=== PATIENT | female | born 1960 | race Asian ===

== ENCOUNTER 2017-01-02 05:23 | Inpatient (IN) | payer OTHER ==
[~2017-01-02] VITALS: Ht 152.4 cm; Wt 79.3 kg
--- NOTE | ~2017-01-02 | HEMODYNAMI ---
PATIENT:KARRI LOFTON MEDICAL RECORD: [id number] : 60 LOCATION:[facility].[address] [facility]# [id number] ADMISSION DATE: 01/02/17 Generatedon:01/02/201713:26 Patient name: KARRI LOFTON Patient #: [id number] SSN: DO B: 1960 Date of study: 01/02/2017 Page: Of Hemodynamic Procedure Report Patient Data Patient Demographics Procedure consent was obtained First Name: KARRI Gender: Female Last Name: KIRSTY : 1960 [facility] Initial: YOAV Age: 56 year(s) Patient #: [id number] Race: Additional ID: [id number] Contact details [address]: [address] [place] [address] State: [place] City: [place] Zip code: [address] Past Medical History Allergies: No known allergies Admission Admission Data Admission Date: 01/02/2017 Admission Time: 7:37 Room #: D.2123 Insurance Payor: Private health insurance Height (in.): 60 BSA: 1.71 (m2) Height (cm.): 152.4 BMI: 31.9 (kg/m2) Weight (lbs.): 163.34 Weight (kg.): 74.09 Lab Results Lab Result Date: 01/02/2017 Lab Result Time: 10:05 Biochemistry Name Units Result Min Max BUN mg/dl 17 --(---*)-- 7 18 Creatinine mg/dl 1.1 --(--*-)-- 0.6 1.3 CBC Name Units Result Min Max Hematocrit % 34.3 *-(----)-- 42 54 Hemoglobin g/dl 11.4 *-(----)-- 13.5 17.5 Procedure Procedure Types Cath Procedure Diagnostic Procedure [facility] w/Coronaries PCI Procedure Coronary Stent Initial Miscellaneous Procedures Moderate Sedation up to 15 minutes Procedure Description Procedure Date Procedure Date: 01/02/2017 Procedure Start Time: 13:10 Procedure End Time: 13:25 Procedure Staff Name Function Adam Malik MD Performing Physician Juan C Ozuna RN Nurse Armin Salcedo RT Monitor Ricci Chapa RT Conventional Underwriter Pranay Garg RT Scrub Procedure Data Cath Procedure Fluoroscopy Diagnostic fluoroscopy Total fluoroscopy Time: 4 time: 4 min min Diagnostic fluoroscopy Total fluoroscopy dose: 374 dose: 374 mGy mGy Contrast Material Contrast Material Type Amount (ml) Isovue 300 77 Entry Location Entry Primary Successful Side Size Upsize Upsize Entry Closure Hernandez ccessful Closure Location (Fr) 1 (Fr) 2 (Fr) Remarks Device Remarks Radial Right 6 Fr Mechanical artery Short Compression Estimated blood loss: 10 ml Diagnostic catheters Device Type Used For End Catheter Placement Terumo 5Fr Nils 110cm Procedure catheter Procedure Complications No complications Procedure Medications Medication Administration Route Dosage Oxygen NC 2 l/min Lidocaine 2% added to field 20 Heparin Flush Bag added to field 2 bags (1000units/500ml NS) 0.9% NaCl I.V. 100 ml/hr Versed I.V. 1 mg Fentanyl I.V. 50 mcg Versed I.V. 1 mg Fentanyl I.V. 50 mcg Fentanyl I.V. 100 mcg Heparin Bolus I.V. 4000 units Integrilin (Bolus I.V. 6.8 ml 2mg/ml) Plavix P.O. 600 mg Hemodynamics Rest BSA: 1.71 (m2) HGB: 11.4 (g/dl) O2 Consumption: Estimated: 158.19 (ml/min) O2 Co nsumption indexed: Estimated:92.51 (ml/min/m) Heart Rate: 61 (bpm) Snapshots Pre Cath Intra NCS Post Cath Vital Signs Time Heart Resp SPO2 etCO2 [id number] NIBP (mmHg) Rhythm Pain Sedation Rate (ipm) (%) (mmHg) (mmHg) Status Level (bpm) 12:51:30 66 15 100 0 0 151/80(121) NSR 0 (11) 10(A) , No pain 12:55:52 62 16 100 0 0 171/82(118) NSR 0 (11) 10(A) , No pain 13:00:06 61 15 100 0 0 126/76(104) NSR 0 (11) 10(A) , No pain 13:04:20 61 14 100 0 0 117/70(97) NSR 0 (11) 10(A) , No pain 13:08:30 61 17 99 0 0 118/78(93) NSR 0 (11) 10(A) , No pain 13:12:44 81 15 100 0 0 94/49(78) NSR 0 (11) 9(A) , No pain 13:16:52 64 15 98 0 0 99/53(82) NSR 0 (11) 9(A) , No pain 13:20:59 61 16 100 0 0 111/60(75) NSR 0 (11) 10(A) , No pain 13:25:13 57 13 100 0 0 101/54(78) NSR 0 (11) 10(A) , No pain Medications Time Medication Route Dose Verified Delivered Reason Notes Effectiveness by by 12:56:11 Oxygen NC 2 Adam Buffie used for l/min King Ozuna RN procedure 12:57:20 Lidocaine 2% added 20ml Adam Adam for local to vial King Malik MD anesthetic field 12:57:26 Heparin Flush added 2 Adam Adam used for Bag to bags King Malik MD procedure (1000units/500ml field NS) 12:57:49 0.9% NaCl I.V. 100 Adam Buffie Per physician ml/hr King Ozuna RN 13:08:08 Versed I.V. 1 mg Adam Irizarry for sedation King Ozuna RN 13:08:17 Fentanyl I.V. 50 Adam Buffie for sedation mcg King Ozuna RN 13:11:39 Versed I.V. 1 mg Adam Perezie for sedation King Ozuna RN 13:11:44 Fentanyl I.V. 50 Adam Perezie for sedation mcg King Ozuna RN 13:14:45 Fentanyl I.V. 100 Adam Perezie for sedation mcg King Ozuna RN 13:16:08 Heparin Bolus I.V. 4000 Adam Irizarry for verifi ed units King Ozuna RN anticoagulation with dr malik 13:18:16 Integrilin I.V. 6.8 Adam Irizarry for Wasted (Bolus 2mg/ml) ml King Ozuna RN anticoagulation 3.2 ml of vial. 13:23:35 Plavix P.O. 600 Adam Irizarry for mg King Ozuna RN antiplatelet therapy Procedure Log Time Note 12:32:54 Ricci Chapa RT(R) sent for patient. Start room use. 12:32:59 Time tracking: Regular hours 12:33:05 Plan of Care:Hemodynamics will remain stable., Cardiac rhythm will remain stable., Comfort level will be maintained., Respiratory function will remain adequate., Patient/ family verbilizes understanding of procedure., Procedure tolerated without complication., Recovers from procedure without complications.. 12:44:35 Patient received from Med II to CCL 1 Alert and oriented. Tansferred to table in Supine position. 12:44:36 Warm blankets applied, and philomena hugger turned on for patient comfort. 12:44:37 Correct patient and procedure confirmed by team. 12:44:38 Signed procedure consent form obtained from patient. 12:44:39 ECG and BP/O2 sat monitors applied to patient. 12:50:10 Vital chart was started 12:50:11 Full Disclosure recording started 12:56:11 Oxygen 2 l/min NC was given by Juan C Ozuna RN; used for procedure; 12:57:20 Lidocaine 2% 20ml vial added to field was given by Adam Malik MD; for local anesthetic; 12:57:26 Heparin Flush Bag (1000units/500ml NS) 2 bags added to field was given by Adam Malik MD; used for procedure; 12:57:49 0.9% NaCl 100 ml/hr I.V. was given by Juan C Ozuna RN; Per physician; 12:58:38 Baseline sample Acquired. 12:58:46 Rhythm: sinus rhythm 12:59:19 Family unavailable. 12:59:21 Patient NPO since Midnight. 12:59:27 Patient allergic to No known allergies 12:59:29 Is the patient allergic to Iodine/contrast media? No. 12:59:30 Is patient on blood thinner?No 12:59:31 Patient diabetic? No. 12:59:34 Previous problem with sedation/anesthesia? No ? 12:59:35 Snore? Yes 12:59:36 Sleep apnea? No 12:59:42 Deviated septum? No 12:59:42 Opens mouth fully? Yes 12:59:43 Sticks out tongue? Yes 12:59:45 Airway obstruction? No ? 12:59:46 Dentures? No ? 12:59:49 Modified Travis's test Ulnar < 7 seconds 12:59:51 Patient pain scale 0/10 ?. 12:59:57 IV patent on arrival in right antecubital with 0.9% NaCl at [facility]. 13:01:09 Lab Result : BUN 17 mg/dl 13:: Lab Result : Creatinine 1.1 mg/dl 13:01: Lab Result : Hemoglobin 11.4 g/dl 13:01: Lab Result : Hematocrit 34.3 % 13::17 Lab results completed and on chart. 13:01:21 Right Radial & Right Groin area was prepped with chlora-prep and draped in sterile fashion 13:01:22 Alarms reviewed by R. N. 13:01:23 Sharps counted by scrub and verified by R.N. 13:01:38 Use device set Radial Dx 13:01:39 Tegaderm 4 x 4 opened to sterile field. 13:01:41 Acist Manifold opened to sterile field. 13:01:41 Acist Hand Control opened to sterile field. 13:01:43 Acist Syringe opened to sterile field. 13:01:43 Medline Cath Pack opened to sterile field. 13:01:44 Bag Decanter opened to sterile field. 13:01:44 Terumo 6Fr Slender Glidesheath opened to sterile field. 13:01:45 St Nish 260cm J .035 wire opened to sterile field. 13:02:21 H&P Date Dictated: 01/02/2017 Within 30 days and on chart.. 13:02:22 Pre-procedure instructions explained to patient. 13:02:23 Pre-op teaching completed and patient verbalized understanding. 13:02:58 Patient Weight : 163.34 lbs 13:03:15 Patient Height : 60 inches 13:03:25 Insurance Payor : Private health insurance 13:07:09 Physician arrived 13:07:09 --------ALL STOP TIME OUT------ 13:07:10 Final Timeout: patient, procedure, and site verified with staff and physician. All members of the team are in agreement. 13:07:11 Right Radial & Right Groin site verified by team. 13:07:14 Physical assessment completed. ASA score P 2 - A patient with mild systemic disease as per Adam Malik MD. 13:07:17 Sedation plan: IV Moderate Sedation Versed, Fentanyl 13:07:20 Zero performed for pressure channel P1 13:08:08 Versed 1 mg I.V. was given by Juan C Ozuna RN; for sedation; 13:08:17 Fentanyl 50 mcg I.V. was given by Juan C Ozuna RN; for sedation; 13:09:49 Procedure started. 13:10:20 Local anesthetic to right radial artery with Lidocaine 2% by Adam Malik MD.INITIAL ACCESS ONLY 13:10:37 A 6 Fr Short sheath was inserted into the Right Radial artery 13:11:25 A Terumo 5Fr Nils 110cm catheter was advanced over the wire and used for Procedure. 13:11:39 Versed 1 mg I.V. was given by uJan C Ozuna RN; for sedation; 13:11:44 Fentanyl 50 mcg I.V. was given by Juan C Ozuna RN; for sedation; 13:12:41 LV gram done using AMEZCUA 13:12:46 Injector settings: Ml/sec: 5, Volume: 15, 13:13:22 EF : 60 % 13:13:29 LCA angiography performed. 13:14:23 RCA angiography performed. 13:14:45 Fentanyl 100 mcg I.V. was given by Juan C Ozuna RN; for sedation; 13:14:49 Catheter removed. 13:15:18 Mariano Whisper J 300cm 0.014 guide wire opened to sterile field. 13:15:19 [employer] BasixCompak Inflation Kit opened to sterile field. 13:16:08 Heparin Bolus 4000 units I.V. was given by Juan C Ozuna RN; for anticoagulation; verified with dr malik 13:16:35 Cordis 6FR XBLAD 3.5 guide catheter opened to sterile field. 13:16:49 6 Fr XBLAD 3.5 guide catheter was inserted over the wire 13:16:55 WHISPER wire advanced. 13:17:57 Wire advanced across lesion. 13:18:16 Integrilin (Bolus 2mg/ml) 6.8 ml I.V. was given by Juan C Ozuna RN; for anticoagulation; Wasted 3.2 ml of vial. 13:19:13 Inflation Number: 1 A Medtronic Integrity 3.5 X 18 stent was prepped and advanced across the Mid LAD. The stent was deployed at 13 JASWINDER for 0:10 (min:sec). 13:20:16 Terumo TR Band Standard opened to sterile field. 13:20:26 ACC PCI Site: mLAD has 85% stenosis. 13:20:28 ACC Pre-intervention MICHELLE Flow is 3. 13:20:30 ACC Post-intervention MICHELLE Flow is 3. 13:20:32 Stent catheter was removed intact over wire. 13:20:34 Wire removed. 13:20:34 Guide catheter removed. 13:20:58 Sheath removed intact; hemostasis achieved with Mechanical Compression to the Right Radial artery. 13:21:02 Procedure ended.(Physican Out) 13:21:52 Fluoroscopy time 04.00 minutes. 13::56 Fluoroscopy dose: 374 mGy 13:21:56 Flurop Dose total: 374 13:22:02 Contrast amount:Isovue 300 77ml. 13:22:03 Sharps counted by scrub and verified by R.N. 13:22:06 TR band inflated with 10cc of air. 13:22:08 Insertion/operative site no bleeding no hematoma. 13:22:19 Post right radial artery:stable, soft, clean and dry 13:22:21 Post Procedure Pulses reassessed and unchanged 13:22:23 Post-procedure physical assessment completed. ASA score P 2 - A patient with mild systemic disease as per Adam Malik MD. 13:22:31 Post procedure rhythm: unchanged. 13:22:35 Estimated blood loss: 10 ml 13:22:37 Post procedure instruction explained to patient.Patient verbalizes understanding. 13:22:37 Patient needs reinforcement of post procedure teaching. 13:23:35 Plavix 600 mg P.O. was given by Juan C Ozuna RN; for antiplatelet therapy; 13:24:17 Procedure type changed to Cath procedure, Diagnostic procedure, LHC, LHC w/Coronaries, PCI procedure, Coronary Stent Initial, Miscellaneous Procedures, Moderate Sedation up to 15 minutes 13:25:09 Procedure and supply charges have been captured, reviewed, submitted and are correct. 13:25:11 Procedure Complication : No complications 13:25:14 Vital chart was stopped 13:25:15 See physician's report for complete and final results. 13:25:17 Report given to PCU. 13:25:19 Patient transfered to PCU with Stretcher. 13:25:22 Procedure ended. 13:25:22 Full Disclosure recording stopped 13:25:58 ACC-PCI Only Patient was given prescriptions, or instructed by Adam Malik MD to start/continue the following medications upon discharge: Plavix 13:26:05 End room use (Document Last) Intervention Summary Intervention Notes Time ActionType Lesion and Equipment Action# Pressure Duration Attributes Used 13:19:13 Place stent Mid LAD Medtronic 1 13 00:10 Integrity 3.5 X 18 stent Device Usage Item Name Manufacture Quantity Catalog Hospital Part Current Minimal Lot# / Number Charge Number Stock Stock Serial# Code Tegaderm 4 1 [id number] [id number] [id number] 5 x 4 Acist Acist 1 92980 [id number] 892222 [id number] 5 Manifold [employer] Acist Hand Acist 1 76205 612061 305848 174068 5 Control [employer] Inc Acist Acist 1 91864 815940 124232 416895 20 Syringe [employer] Inc Medline Cardinal 1 [id number] 829516 98136 545992 5 Cath Pack Health Bag Microtek 1 2002S 750670 92626 175603 5 [employer] Terumo 6Fr Terumo 1 [id number] 568251 530750 266320 [address] Nish St Nish 1 424091 840313 627445 971654 30 260cm J .035 wire Terumo 5Fr Terumo 1 01-7506 624188 264936 142132 5 Nils 110cm catheter Mariano Mariano 1 [id number] 917243 883765 664167 5 Whisper J Vascular 300cm 0.014 guide wire Merit Merit 1 [id number] 153293 384928 909962 15 [facility] [facility] Medical Inflation Kit Cordis 6FR Cardinal 1 [id number] 988242 859105 315414 10 XBLAD 3.5 Health guide catheter Medtronic Medtronic 1 [id number] 934648 220126 6 [id number] Integrity 3.5 X 18 stent Terumo TR Terumo 1 [id number] 696859 897766 274919 40 Band Standard Signature Audit [place] Stage Time Signature Unsigned Intra-Procedure 01/02/2017 Armin Salcedo 1:26:53 PM RT(R) Signatures Monitor : Armin Salcedo RT Signature : Date : Time : [address] [place] [address]
--- NOTE | ~2017-01-02 | HEMODYNAMI ---
PATIENT:KARRI LOFTON MEDICAL RECORD: [id number] : 60 LOCATION:[facility] [address] [facility]# [id number] ADMISSION DATE: 01/02/17 Generatedon:01/03/201712:38 Patient name: KARRI LOFTON Patient #: [id number] SSN: DO B: 1960 Date of study: 01/03/2017 Page: Of Hemodynamic Procedure Report Patient Data Patient Demographics Procedure consent was obtained First Name: KARRI Gender: Female Last Name: KIRSTY : 1960 [facility] Initial: YOAV Age: 56 year(s) Patient #: [id number] Race: Additional ID: [id number] Contact details Address: [address] [place] [address] State: [place] City: [place] Zip code: [address] Past Medical History Allergies: No known allergies Admission Admission Data Admission Date: 01/02/2017 Admission Time: 14:56 Room #: D.2123 Insurance Payor: Private health insurance Height (in.): 60 BSA: 1.71 (m2) Height (cm.): 152.4 BMI: 31.9 (kg/m2) Weight (lbs.): 163.34 Weight (kg.): 74.09 Lab Results Lab Result Date: 01/03/2017 Lab Result Time: 0:00 Biochemistry Name Units Result Min Max BUN mg/dl 17 --(---*)-- 7 18 Creatinine mg/dl 1.1 --(--*-)-- 0.6 1.3 CBC Name Units Result Min Max Hemoglobin g/dl 11.4 *-(----)-- 13.5 17.5 Procedure Procedure Types Cath Procedure Diagnostic Procedure FFR/IVUS Intra-Coronary IVUS Initial PCI Procedure Coronary Stent Initial Miscellaneous Procedures Moderate Sedation up to 15 minutes Procedure Description Procedure Date Procedure Date: 01/03/2017 Procedure Start Time: 12:28 Procedure End Time: 12:37 Procedure Staff Name Function Adam Malik MD Performing Physician Viv Crum RT Scrub Juan C Ozuna RN Nurse Pranay Garg RT Monitor Procedure Data Cath Procedure Fluoroscopy Diagnostic fluoroscopy Total fluoroscopy Time: 1.8 time: 1.8 min min Diagnostic fluoroscopy Total fluoroscopy dose: 255 dose: 255 mGy mGy Contrast Material Contrast Material Type Amount (ml) Isovue 300 39 Entry Location Entry Primary Successful Side Size Upsize Upsize Entry Closure Succes sful Closure Location (Fr) 1 (Fr) 2 (Fr) Remarks Device Remarks Femoral Right 6 Fr Vascade artery Short Closure System Procedure Medications Medication Administration Route Dosage Oxygen NC 2 l/min Lidocaine 2% added to field 20 Heparin Flush Bag added to field 2 bags (1000units/500ml NS) 0.9% NaCl I.V. 100 ml/hr Versed I.V. 1 mg Fentanyl I.V. 50 mcg Heparin Bolus I.V. 4000 units Versed I.V. 1 mg Fentanyl I.V. 50 mcg Versed I.V. 1 mg Fentanyl I.V. 50 mcg Hemodynamics Rest BSA: 1.71 (m2) HGB: 11.4 (g/dl) O2 Consumption: Estimated: 160.64 (ml/min) O2 Co nsumption indexed: Estimated:93.94 (ml/min/m) Heart Rate: 65 (bpm) Snapshots Pre Cath Intra NCS Post Cath Vital Signs Time Heart Resp SPO2 etCO2 TB4atve NIBP (mmHg) Rhythm Pain Sedation Rate (ipm) (%) (mmHg) (mmHg) Status Level (bpm) 12:13:11 67 17 100 0 0 159/87(144) NSR 0 (11) 10(A) , No pain 12:17:27 62 18 100 0 0 135/75(105) NSR 0 (11) 10(A) , No pain 12:21:43 62 17 99 0 0 128/75(99) NSR 0 (11) 10(A) , No pain 12:25:59 62 16 99 0 0 129/71(112) NSR 0 (11) 10(A) , No pain 12:30:13 62 15 100 0 0 131/77(102) NSR 0 (11) 9(A) , No pain 12:34:27 64 15 100 0 0 127/71(102) NSR 0 (11) 9(A) , No pain 12:38:00 65 15 100 0 0 125/78(102) NSR 0 (11) 10(A) , No pain Medications Time Medication Route Dose Verified Delivered Reason Notes Effectiveness by by 12:12:33 Oxygen NC 2 Adam Anaie used for l/min King Ozuna RN procedure 12:12:39 Lidocaine 2% added 20ml Adam Adam for local to vial King Malik MD anesthetic field 12:12:46 Heparin Flush added 2 Adam Adam used for Bag to bags King Malik MD procedure (1000units/500ml field NS) 12:12:54 0.9% NaCl I.V. 100 Adam Buffie Per physician ml/hr King Ozuna RN 12:28:02 Fentanyl I.V. 50 Adam Perezie for sedation mcg King Ozuna RN 12:28:02 Versed I.V. 1 mg Daam Buffie for sedation King Ozuna RN 12:29:47 Heparin Bolus I.V. 4000 Adam Perezie for verifi ed units King Ozuna RN anticoagulation with dr malik 12:31:20 Versed I.V. 1 mg Adam Buffie for sedation King Ozuna RN 12:31:24 Fentanyl I.V. 50 Adam Perezie for sedation mcg King Ozuna RN 12:33:28 Versed I.V. 1 mg Adam Buffie for sedation King Ozuna RN 12:33:32 Fentanyl I.V. 50 Adam Buffie for sedation mcg King Ozuna RN Procedure Log Time Note 11:53:40 Juan C Ozuna RN sent for patient. Start room use. 11:53:41 Time tracking: Regular hours 11:53:43 Patient Weight : 163.34 lbs 11:53:43 Patient Height : 60 inches 11:53:45 Plan of Care:Hemodynamics will remain stable., Cardiac rhythm will remain stable., Comfort level will be maintained., Respiratory function will remain adequate., Patient/ family verbilizes understanding of procedure., Procedure tolerated without complication., Recovers from procedure without complications.. 12:00:31 Patient received from PCU to CCL 1 Alert and oriented. Tansferred to table in Supine position. 12:00:32 Warm blankets applied, and philomena hugger turned on for patient comfort. 12:00:33 Correct patient and procedure confirmed by team. 12:00:34 Signed procedure consent form obtained from patient. 12:00:35 ECG and BP/O2 sat monitors applied to patient. 12:00:36 Full Disclosure recording started 12:03:46 IV right antecubital D/C'd due to infiltration. 12:04:47 IV started by Juan C Ozuna RN inleft hand with a 22 gauge IV catheter with 0.9% NaCl at KVO. 12:05:45 22g IV Catheter opened to sterile field. 12:11:55 Vital chart was started 12:12:33 Oxygen 2 l/min NC was given by Juan C Ozuna RN; used for procedure; 12:12:39 Lidocaine 2% 20ml vial added to field was given by Adam Malik MD; for local anesthetic; 12:12:46 Heparin Flush Bag (1000units/500ml NS) 2 bags added to field was given by Adam Malik MD; used for procedure; 12:12:54 0.9% NaCl 100 ml/hr I.V. was given by Juan C Ozuna RN; Per physician; 12:14:06 Baseline sample Acquired. 12:14:09 Rhythm: sinus rhythm 12:15:18 H&P Date Dictated: 01/02/2017 Within 30 days and on chart.. 12:15:20 Pre-procedure instructions explained to patient. 12:15:20 Pre-op teaching completed and patient verbalized understanding. 12:15:22 Family in patients room. 12:15:24 Patient NPO since Midnight. 12:15:30 Patient allergic to No known allergies 12:15:33 Is the patient allergic to Iodine/contrast media? No. 12:15:37 Is patient on blood thinner?Yes 12:15:40 ACC The patient was administered the following blood thiners within the last 24 hours: ACCPlavix 12:15:42 Patient diabetic? No. 12:15:43 ----Pre-sedation anethsthesia assessment.---- 12:15:46 Previous problem with sedation/anesthesia? No ? 12:15:47 Snore? Yes 12:15:48 Sleep apnea? No 12:15:50 Deviated septum? No 12:15:51 Opens mouth fully? Yes 12:15:53 Sticks out tongue? Yes 12:15:55 Airway obstruction? No ? 12:15:56 Dentures? No ? 12:15:59 Pre procedure: right dorsailis pedis pulse 2+ Normal; easily identifiable; not easily obliterated 12:16:02 Patient pain scale 0/10 ?. 12:16:53 Lab Result : BUN 17 mg/dl 12:16:53 Lab Result : Creatinine 1.1 mg/dl 12:16:53 Lab Result : Hemoglobin 11.4 g/dl 12:16:57 Lab results completed and on chart. 12:17:00 Right groin area was prepped with chlora-prep and draped in sterile fashion 12:17:01 Alarms reviewed by R. N. 12:17:02 Sharps counted by scrub and verified by R.N. 12:20:56 Physician paged 12:21:15 Use device set Femoral PCI 12:21:18 Acist Syringe opened to sterile field. 12:21:19 Acist Hand Control opened to sterile field. 12:21:19 Bag Decanter opened to sterile field. 12:21:20 Medline Cath Pack opened to sterile field. 12:21:21 Terumo 6Fr [place] Carver Sheath opened to sterile field. 12:21:21 St Nish 260cm J .035 wire opened to sterile field. 12:21:22 Merit BasixCompak Inflation Kit opened to sterile field. 12:21:23 Acist Manifold opened to sterile field. 12:21:24 Tegaderm 4 x 4 opened to sterile field. 12:24:08 Zero performed for pressure channel P1 12:24:11 Zero performed for pressure channel P1 12:27:04 --------ALL STOP TIME OUT------ 12::04 Final Timeout: patient, procedure, and site verified with staff and physician. All members of the team are in agreement. 12:27:06 Right groin site verified by team. 12:27:09 Physical assessment completed. ASA score P 2 - A patient with mild systemic disease as per Adam Malik MD. 12:27:12 Sedation plan: IV Moderate Sedation Versed, Fentanyl 12:28:02 Fentanyl 50 mcg I.V. was given by Juan C Ozuna RN; for sedation; 12::02 Versed 1 mg I.V. was given by Juan C Ozuna RN; for sedation; 12::28 Procedure started. 12:28:37 Local anesthetic to right femoral artery with Lidocaine 2% by Adam Malik MD.INITIAL ACCESS ONLY 12::45 A 6 Fr Short sheath was inserted into the Right Femoral artery 12:: 6 Fr XBLAD 4 guide catheter was inserted over the wire 12:: WHISPER wire advanced. 12::39 FFR/IVUS 12::39 IVUS catheter advanced over wire. 12:: IVUS pass to Circ lesion performed. 12::47 Heparin Bolus 4000 units I.V. was given by Juan C Ozuna RN; for anticoagulation; verified with dr malik 12:30:02 Faber Torres Martinez Eagleye IVUS Catheter opened to sterile field. 12::49 Procedure type changed to Cath procedure, Diagnostic procedure, FFR/IVUS, Intra-Coronary IVUS Initial, PCI procedure, Coronary Stent Initial, Miscellaneous Procedures, Moderate Sedation up to 15 minutes 12::54 IVUS catheter removed over wire. 12:31:20 Versed 1 mg I.V. was given by Juan C Ozuna RN; for sedation; 12:31:24 Fentanyl 50 mcg I.V. was given by Juna C Ozuna RN; for sedation; 12:32:17 Inflation Number: 1 A Citymapper Limitedtronic Integrity 3.0 X 15 stent was prepped and advanced across the Mid CX. The stent was deployed at 13 JASWINDER for 0:09 (min:sec). 12::29 Inflation number: 2 The stent balloon was then re-inflated across the Mid CX to 17 JASWINDER for 0:10 (min:sec). 12:32:38 ACC Post-intervention MICHELLE Flow is 3. 12:32:39 Stent catheter was removed intact over wire. 12:32:40 Wire removed. 12:32:41 Guide catheter removed. 12:32:48 Contrast amount:Isovue 300 39ml. 12:32:54 Sheath removed intact; hemostasis achieved with Vascade Closure System to the Right Femoral artery. 12:33:01 Vascade 6/7 Fr Closure Device opened to sterile field. 12:33:28 Versed 1 mg I.V. was given by Juan C Ozuna RN; for sedation; 12:33:32 Fentanyl 50 mcg I.V. was given by Juan C Ozuna RN; for sedation; 12:35:58 Procedure ended.(Physican Out) 12:36:19 Fluoroscopy time 01.80 minutes. 12:36:23 Flurop Dose total: 255 12:36:23 Fluoroscopy dose: 255 mGy 12:36:25 Sharps counted by scrub and verified by R.N. 12:36:27 Insertion/operative site no bleeding no hematoma. 12:36:28 Insertion/operative site no bleeding no hematoma. 12:36:31 Post-op/insertion site Right Femoral artery dressed using a 4 x 4 and Tegaderm. 12:36:35 Post right femoral artery:stable 12:36:35 Post Procedure Pulses reassessed and unchanged 12:36:38 Post procedure: right dorsailis pedis pulse 1+ Palpable, but thready & weak; easily obliterated. 12:36:40 Post procedure rhythm: sinus rhythm 12:36:42 Post procedure instruction explained to patient.Patient verbalizes understanding. 12:36:43 Procedure and supply charges have been captured, reviewed, submitted and are correct. 12:37:18 Mariano Whisper J 300cm 0.014 guide wire opened to sterile field. 12:37:18 Cordis 6FR XBLAD 4.0 guide catheter opened to sterile field. 12:37:45 Vital chart was stopped 12:37:46 See physician's report for complete and final results. 12:37:50 Report given to PCU. 12:37:53 Patient transfered to PCU with Bed. 12:37:55 Procedure ended. 12:37:55 Full Disclosure recording stopped 12:37:59 End room use (Document Last) Intervention Summary Intervention Notes Time ActionType Lesion and Equipment Action# Pressure Duration Attributes Used 12:32:17 Place stent Mid CX Medtronic 1 13 00:10 Integrity 3.0 X 15 stent 12:32:29 Reinflate Mid CX Medtronic 2 17 00:10 stent Integrity balloon 3.0 X 15 stent Device Usage Item Name Manufacture Quantity Catalog Hospital Part Current [facility] l Lot# / Number Charge Number Stock Stock Serial# Code 22g IV B. Wiggins 1 [id number] 405820 [id number] 474484 5 Catheter Acist Acist 1 04645 052224 339009 298320 20 Syringe Medical Systems Inc Acist Hand Acist 1 64318 048465 056117 191029 5 Control Medical Systems Inc Bag Microtek 1 2002S 230907 64061 818721 5 Decanter Medical Inc. Medline Cardinal 1 [id number] 58951 848497 5 Cath Pack Health Terumo 6Fr Terumo 1 [id number] 451679 729005 322112 [address] Nish 1 020383 372790 316142 843270 30 260cm J .035 wire [facility] Merit 1 [id number] 976269 594907 316662 15 BasixCompak Medical Inflation Kit Acist Acist 1 89694 465251 585997 229095 5 crossvertise Medical Systems Inc Tegaderm 4 3M 1 1626W 241115 778183 474208 5 x 4 Faber Faber 1 [id number] 206177 366459 051401 8 Torres Martinez Eagleye IVUS Catheter Medtronic Medtronic 1 [id number] 002736 578236 014993 9 [id number] Integrity 3.0 X 15 stent Vascade 6/7 Cardiva 1 [id number] 181221 131794 805815 5 Fr Closure Medical, Device Inc. Mariano Mariano 1 [id number] 409177 800273 204570 5 Whisper J Vascular 300cm 0.014 guide wire Cordis 6FR Cardinal 1 [id number] 270127 427708 185976 3 XBLAD 4.0 Novaled guide catheter Signature Audit [place] Stage Time Signature Unsigned Intra-Procedure 01/03/2017 Pranay Garg 12:38:21 PM RT(R) Signatures Monitor : Pranay Garg RT Signature : Date : Time : [facility] [address] [place], [place] [address]
[~2017-01-02 05:23] MED LIST: EDARBI40 MG PO
[2017-01-02 05:47] LABS: BASOPHILS 0.4 % (0.0-2.0); EOSINOPHILS 3.3 % (0-7); HEMATOCRIT 34.3 % (36.0-48.0); HEMOGLOBIN 11.4 g/dL (12-16); IMMATURE GRANULOCYTES 0.2 % (0-5); MCH 20.8 pg (26.0-34.0); MCHC 33.2 g/dL (31.0-37.0); MCV 62.5 fL (80.0-100.0); MONOCYTES 9.6 % (2-11); NEUTROPHILS 56.5 % (40-80); PLATELET COUNT 193 10x3/uL (130-400); RBC 5.49 10x6/uL (4.00-5.40); RDW 15.8 % (11.5-14.5); WBC 11.3 10x3/uL (4.8-10.8)
[2017-01-02 06:23] LABS: ALBUMIN 3.6 g/dL (3.4-5.0); ALKALINE PHOSPHATASE 80 U/L (46-116); ALT (SGPT) 23 U/L (10-68); CALC OSMOLALITY 280 mosm/kg (275-300); CARBON DIOXIDE 27.4 mmol/L (21.0-32.0); CHLORIDE - SERUM 102 mmol/L (98-107); CREATININE - SERUM 1.1 mg/dL (0.6-1.3); GLUCOSE 106 mg/dL (74-106); POTASSIUM - SERUM 3.6 mmol/L (3.5-5.1); PROTEIN - SERUM 8.1 g/dL (6.4-8.2); SODIUM 140 mmol/L (136-145); UREA NITROGEN 17 mg/dL (7-18); eGFR NON AFRICAN AMERICAN 54 mL/min (90-120)
[2017-01-02 06:34] LABS: CHOL - HDL RATIO 6.4 ratio (2.3-4.1); CHOLESTEROL, TOTAL 359 mg/dL (0-200); CKMB 0.7 U/L (0.0-3.6); CREATINE KINASE 54 UL (21-215); HDL CHOLESTEROL 56 mg/dL (32-96); LDL CHOLESTEROL 284 mg/dL (0-100); LDL-HDL RATIO 5.1 ratio (1.5-3.5); TRIGLYCERIDE 95 mg/dL (30-200)
[2017-01-02 06:35] LABS: TROPONIN-I < 0.017 ng/mL (0.000-0.060)
--- NOTE | 2017-01-02 08:10 | NUR ---
ARRIVE TO ROOM VIA WHEELCHAIR FROM ER ACCOMPANIED BY ER NURSE. ALERT AND ORIENTED X4. AMBULATES FROM CHAIR TO BED. GAIT STEADY. DENIES SOB OR PAIN AT THIS TIME. GUDELIA WITH CARDIOLOGY ARRIVE TO ROOM FOR CONSULT. CONTINUE ADMISSION PROCESS. BED LOCKED AND AND LOW. CALL LIGHT IN REACH. TWO SIDERAILS UP. REFUSE SCDs. AMBULATORY.
[2017-01-02] MEDS ORDERED: ACETAMINOPHEN500 M1 PO (08:23)
[2017-01-02] MEDS ORDERED: MULTIPLE VITAMI1 TA1 PO (08:24)
[2017-01-02 08:55] LABS: INR 0.93 (0.85-1.17); PROTIME 12.3 SECONDS (11.6-15.0)
[2017-01-02 10:20] VITALS: BP 141/74; Ht 152.4 cm; Wt 79.3 kg
[2017-01-02 10:46] LABS: CKMB 0.4 U/L (0.0-3.6); CREATINE KINASE 48 UL (21-215); TROPONIN-I < 0.017 ng/mL (0.000-0.060)
[2017-01-02 12:07] VITALS: BP 121/77; BP 169/83
--- NOTE | 2017-01-02 13:43 | NUR ---
ARRIVE BACK TO ROOM VIA BED FROM SAFETY ANALYST. SINUS RHYTHM 64bpm ON TELEMETRY. DENIES PAIN OR SOB. BP-119/69, 96% RA, R-16. TR BAND RT WRIST. RT HAND PURPLISH BLUE. WARM TO TOUCH. SAFETY ANALYST NOTIFIED. JOHNNY COME TO ASSESS. TR BAND DEFLATED AND REPOSITIONED. TR BAND INFLATED WITH 10mL OF AIR. COLORATION OF HAND WNL. SCANT BLOOD FROM REPOSITIONING TR BAND. CONTINUE TO MONITOR. BED LOCKED AND LOW. CALL LIGHT IN REACH. TWO SIDERAILS UP.
[2017-01-02 16:15] VITALS: BP 117/55
[2017-01-02 16:23] LABS: CKMB 0.3 U/L (0.0-3.6); CREATINE KINASE 44 UL (21-215); TROPONIN-I 0.033 ng/mL (0.000-0.060)
--- NOTE | 2017-01-02 17:00 | NUR ---
ALERT AND ORIENTED X4. SITTING UP IN BED. RT WRIST TR BAND DEFLATED 3ML OF AIR. FREE FROM BLEEDING. NO HEMATOMA. PULSES +2 BILATERALLY. DENIES PAIN OR SOB. CONTINUE PLAN OF CARE. BED LOCKED AND LOW. CALL LIGHT IN REACH. SCDs ON. TWO SIDERAILS UP.
--- NOTE | 2017-01-02 19:39 | NUR ---
ASSESSMENT COMPLETE, A&O. IV TO RIGHT AC WITH NS AT KVO. SITE CLEAN AND DRY. TR BAND TO RIGHT WRIST. AIR DEFLATED, NO ACTIVE BLEEDING OR HEMATOMA NOTED. INFORMED PT THAT I WILL BE BACK SHORTLY TO TAKE BAND OFF COMPLETELY. PT DENIES PAIN OR NEEDS, BED LOW, CL IN REACH, FAMILY AT BED SIDE.
[2017-01-02 20:00] VITALS: BP 99/63
--- NOTE | 2017-01-02 21:14 | NUR ---
HS MEDS GIVEN WITH FRESH ICE WATER, DENIES PAIN OR NEEDS. DRSG TO RIGHT WRIST C/D/I. NO BLEEDING OR SWELLING NOTED.
[2017-01-03] VITALS: BP 119/65
--- NOTE | 2017-01-03 00:30 | NUR ---
WASHHOUSE WORKER AT BEDSIDE FOR VS. NEEDS ADDRESSED. CALL LIGHT IN REACH. WILL CONT TO MONITOR.
[2017-01-03 04:00] VITALS: BP 118/79
[2017-01-03 07:53] VITALS: BP 140/75
--- NOTE | 2017-01-03 07:56 | NUR ---
ASSESSMENT COMPLETED. DENIES ANY NEEDS. RIGHT WRIST CATH SITE WITH DRSG DRY AND INTACT. TELEMERTY SHOWS SR. SR UP WITH CALL LIGHT IN REACH. WILL MONITOR
--- NOTE | 2017-01-03 11:40 | NUR ---
PRE OP DONE FOR CATH
[2017-01-03 11:44] VITALS: BP 180/91
--- NOTE | 2017-01-03 13:04 | NUR ---
RECIEVED FROM INSPECTING MACHINE ADJUSTER. V/S STABLE. TELEMERTY SHOWS SR. RIGHT GROIN SOFT WITH PPP. FEM STOP IN USE. WILL MONITOR
--- NOTE | 2017-01-03 13:38 | NUR ---
V/S STABLE. PPP. FEM STOP TO RIGHT GROIN. NO BLEEDING NOTED. TELEMERTY SHOWS SR. WILL MONITOR
--- NOTE | 2017-01-03 13:48 | NUR ---
Patient Name: KARRI LOFTON Admission Status: ER Accout number: [id number] Admission Date: 01-02-2017 : 1960 Admission Diagnosis: Attending: JOSE ANGEL Current LOS: 1 Anticipated DC Date: Planned Disposition: Home Primary Insurance: [employer] Discharge Planning Comments: CM ATTEMPTED TO MEET WITH PT FOR INITIAL ASSESSMENT OF DISCHARGE NEEDS. PT WAS POST PROCEDURE AND RECOVERING FROM SEDATION AT APPROXIMATELY 1320 HOURS. CM TO ATTEMPT ASSESSMENT OF PT AT A LATER TIME. Visual Journalist: Stanford Boyce
[2017-01-03] MEDS ORDERED: PLAVIX75 MG PO (14:26)
[2017-01-03] MEDS ORDERED: Mevacor PO (14:26)
[2017-01-03] MEDS ORDERED: ASPIRIN325 MG PO (14:27)
[2017-01-03] MEDS ORDERED: PRAVACHOL40 MG PO (14:56)
[2017-01-03] MEDS ORDERED: ASPIRIN81 MG PO (14:58)
[2017-01-03 15:24] VITALS: BP 131/74
--- NOTE | 2017-01-03 15:57 | NUR ---
Patient Name: KARRI LOFTON Admission Status: ER Accout number: [id number] Admission Date: 01-02-2017 : 1960 Admission Diagnosis: Attending: JOSE ANGEL Current LOS: 1 Anticipated DC Date: 01-03-2017 Planned Disposition: Home Primary Insurance: Discharge Planning Comments: * Is the patient Alert and Oriented? Yes 0 * How many steps to enter\exit or inside your home? NONE 0 * PCP DR. DE LOS SANTOS 0 * Pharmacy [facility] [address] 0 * Preadmission Environment Home Alone 0 * ADLs Independent 0 * Equipment None 0 * Other Equipment NO MEDICAL EQUIPMENT PROVIDER PREFERENCE 0 * List name and contact numbers for known caregivers / representatives who currently or will assist patient after discharge: NEELA LOFTON, DAUGHTER, 0 * Community resources currently utilized None 0 * Please name any agencies selected above. NONE 0 * Additional services required to return to the preadmission environment? No 0 * Can the patient safely return to the preadmission environment? Yes 0 * Has this patient been hospitalized within the prior 30 days at any hospital? No 0 CM MET WITH PT IN ROOM TO DISCUSS DISCHARGE PLANNING AND NEEDS. PT REPORTS LIVING AT HOME INDEPENDENTLY AND ALONE. PT'S DAUGHTER WILL BE PICKING HER UP AND STAYING WITH PT AT HOME DURING RECOVERY. PT HAS NO MEDICAL EQUIPMENT AND NO OUTSIDE SERVICES ASSISTING IN THE HOME. CM DISCUSSED AVAILABILITY OF HOME HEALTH, REHAB SERVICES AND MEDICAL EQUIPMENT. PT DENIES DISCHARGE NEEDS. Donor Processor: Stanford Boyce
--- NOTE | 2017-01-03 18:15 | NUR ---
PT DCD. IVDCD WITH TIP INTACT. INSTRUCTIONS GIVEN TO PT AND FAMILY. TO PRIVATE CAR PER WHEEL CHAIR
--- NOTE | 2017-01-06 08:47 | OP ---
PATIENT NAME: KARRI LOFTON MEDICAL RECORD: [id number] :60 LOCATION:D.M2 D.2123 ADMISSION DATE:01/02/17 SURGEON: COSMO ALMANZAR MD DATE OF OPERATION: 01/02/2017 PROCEDURES: 1. PTCA stent to LAD. 2. Left heart catheterization. 3. Selective coronary angiography. 4. Left ventriculogram. INDICATION: Unstable angina. PROCEDURE IN DETAIL: After informed consent was obtained and after a detailed explanation of risks, benefits as well as alternative therapies, the patient elected to proceed with angiogram and angioplasty ____. The right radial area was prepped and draped in normal sterile fashion. Right radial artery was cannulated via modified Seldinger technique with placement of a 6-Kinyarwanda sheath. All catheters were exchanged through this sheath. FINDINGS: The left ventriculogram was performed in the standard 30-degree AMEZCUA view reveals good cardiac wall motion throughout all segments. Overall ejection fraction estimated at 60%. SELECTIVE CORONARY ANGIOGRAPHY: 1. Left main showed no significant angiographic disease. 2. Left anterior descending has an 80% stenosis in the mid vessel. 3. Left circumflex has a 70+ percent stenosis in the mid vessel. 4. Right coronary has glmo-yn-cpqbubwh irregularities. PTCA STENT OF THE LAD: The stent used is a 3.5 x 18 mm Integrity. Result was 0% residual stenosis. OVERALL IMPRESSION: Successful percutaneous transluminal coronary angioplasty stent of the left anterior descending going from 80% initial stenosis to 0% residual. TRANSINT:[id number] Voice Confirmation ID: [id number] DOCUMENT ID: [id number] COSMO ALMANZAR MD at 0847 CC: [id number] DICTATION DATE: 01/02/17 1324 PLASTIC SURGERY ASSISTANT: 01/02/17 1424 DIS IN 01/03/17 [place] [address]
--- NOTE | 2017-01-06 08:47 | OP ---
PATIENT NAME: KARRI LOFTON MEDICAL RECORD: [id number] :[birth year] LOCATION:D.M2 D.2123 ADMISSION DATE:01/02/17 SURGEON: COSMO ALMANZAR MD DATE OF OPERATION: 01/03/2017 PROCEDURES: 1. PTCA stent left circumflex. 2. Intravascular ultrasound of left circumflex. 3. Selective coronary angiography. INDICATION: Angina and coronary artery disease. PROCEDURE PERFORMED: After informed consent was obtained and after a detailed explanation of risks, benefits as well as alternative therapies, the patient elected to proceed with angiogram and angioplasty. The right femoral area was prepped and draped in normal sterile fashion. The right femoral artery was cannulated via modified Seldinger technique with placement of 6-Mongolian sheath. All catheters exchanged through this sheath. FINDINGS: The left circumflex has 84% stenosis in the mid vessel confirmed by intravascular ultrasound. This was addressed with a 3.0 x 15 mm Integrity stent. Result was 0% residual stenosis. OVERALL IMPRESSION: Successful percutaneous transluminal coronary angioplasty stent of the left circumflex going from 85% initial stenosis to 0% residual. TRANSINT:[id number] Voice Confirmation ID: [id number] DOCUMENT ID: [id number] COSMO ALMANZAR MD at 0847 CC: [id number] DICTATION DATE: 01/03/17 1239 PIPE INSULATOR HELPER: 01/03/172112 DIS IN 01/03/17 [address] [place] [address]
--- NOTE | 2017-01-06 08:47 | DS ---
PATIENT:KARRI MEANS :[birth year] MEDICAL RECORD: [id number] DISCHARGE SUMMARY ADMISSION DATE: 01/02/17 DISCHARGE DATE: 01/03/17 DIAGNOSES: 1. Unstable angina. 2. Coronary artery disease. 3. Percutaneous transluminal coronary angioplasty stent left anterior descending and left circumflex this admission. 4. Hyperlipidemia. 5. Hypertension. HOSPITAL COURSE: Mrs. Means presents with anginal symptomatology, found to have 2-vessel disease of the LAD and circumflex, underwent successful PTCA stent of above territories and was discharged home with the addition of aspirin, Plavix, Pravachol to her medical regimen. Will follow up with [facility] in 1 month. TRANSINT:[id number] Voice Confirmation ID: [id number] DOCUMENT ID: [id number] COSMO ALMANZAR MD at 0847 CC: [id number] DICTATION DATE: 01/03/17 1238 BLOOD COLLECTOR: 01/04/17 0136 DIS IN 01/03/17 [address] [place] [address]
== END 2017-01-03 18:16 | disposition home or self-care (01) | DRG 249 ==
LOC: D.ER 05:23 → D.M2 07:37 → OBSVTIME 07:37 → D.M2 07:37
PROVIDERS: Emergency Medicine Emergency Medical Services; Family Medicine; Internal Medicine Interventional Cardiology; ADMIT Family Medicine
PROC: 4A023N7 Measurement of Cardiac Sampling and Pressure, Left Heart, Percutaneous Approach (ICD-10-PCS; 2017-01-02)
PROC: B2111ZZ Fluoroscopy of Multiple Coronary Arteries using Low Osmolar Contrast (ICD-10-PCS; 2017-01-02)
PROC: B2151ZZ Fluoroscopy of Left Heart using Low Osmolar Contrast (ICD-10-PCS; 2017-01-02)
PROC: 02703DZ Dilation of Coronary Artery, One Artery with Intraluminal Device, Percutaneous Approach (ICD-10-PCS; principal; 2017-01-02 14:00)
PROC: 02703DZ Dilation of Coronary Artery, One Artery with Intraluminal Device, Percutaneous Approach (ICD-10-PCS; 2017-01-03)
PROC: B240ZZ3 Ultrasonography of Single Coronary Artery, Intravascular (ICD-10-PCS; 2017-01-03)
DX: I25.110 Atherosclerotic heart disease of native coronary artery with unstable angina pectoris (principal); E78.5 Hyperlipidemia, unspecified; I10 Essential (primary) hypertension; D64.9 Anemia, unspecified